=== PATIENT | male | born 1960 | race Caucasian/White ===

== ENCOUNTER 2017-05-23 16:55 | Observation (INO) | payer BC ==
[2017-05-23] MEDS ORDERED: SODIUM CHLORIDE 1,000 ML IV ONE ×2 (17:08→18:26)
[2017-05-23 17:40] LABS: MCH 29.2 pg (25.7-33.7)
[2017-05-23 17:42] LABS: BASOPHIL 0.5 % (0-2.0); EOSINOPHIL 0.9 % (0-4.5); MCHC 34.9 g/dl (32.0-35.9); MEAN CELL VOLUME 83.5 fl (80-96); MEAN PLT VOLUME 7.8 fl (7.5-11.1); PLATELET COUNT 260 K/MM3 (134-434); RDW 13.5 % (11.9-15.9)
[2017-05-23 17:49] LABS: INR 1.08 (0.82-1.09); PROTHROMBIN TIME (PATIENT) 12.2 SEC (9.98-11.88)
--- NOTE | 2017-05-23 17:51 | PDOC ---
History of Present Illness - General History Source: Patient Exam Limitations: No Limitations - History of Present Illness Initial Comments: 05/23/17 17:52 The patient is a 56 year old male, with a significant past medical history of HLD who presents to the emergency department with rectal bleeding today. Patient notes prostate biopsy that was performed at 2:30 PM by his urologist today. Patient reports returning home and immediately noticed bright red blood with bowels. Patient reports 4-5 episodes of hematochezia with lightheadedness and generalized weakness. Patient states this has happened before after his previous prostate biopsy. Patient presents to the ED for further evaluation. Patient has also been taking Ceftriaxone before the procedure. Upon evaluation, patients vital signs are within normal limits. He denies chest pain, headache. He denies fever, chills, abdominal pain, nausea , vomit, diarrhea or constipation. He denies dysuria, frequency, urgency or hematuria. Patient denies sick contacts or recent travel. Allergies: NKA Past surgical history: R Knee sx, prostate biopsy. Social history: None PCP: Dr. Tompkins Urologist: Ky Worley <Yoanna Donohue - Last Filed: 05/23/17 18:59> - General History Source: Patient Exam Limitations: No Limitations <Karli Shields - Last Filed: 05/23/17 19:04> - General Chief Complaint: Rectal Bleed Stated Complaint: RECTAL BLEEDING Time Seen by Provider: 05/23/17 17:14 Past History <Yoanna Doonhue - Last Filed: 05/23/17 18:59> - Past Medical History COPD: No Hypercholesterolemia: Yes - Suicide/Smoking/Psychosocial Hx Smoking History: Never smoked Have you smoked in the past 12 months: No Information on smoking cessation initiated: No Hx Alcohol Use: No Drug/Substance Use Hx: No Substance Use Type: None <Karli Shields - Last Filed: 05/23/17 19:04> - Past Medical History Allergies/Adverse Reactions: Allergies Allergy/AdvReac Type Severity Reaction Status Date / Time No Known Allergies Allergy Verified 05/23/17 16:58 Home Medications: Ambulatory Orders Atorvastatin Calcium [Lipitor] 10 mg PO DAILY 12/14/13 Review of Systems - Review of Systems Able to Perform ROS?: Yes Comments:: 05/23/17 17:52 GENERAL/CONSTITUTIONAL: No fever or chills. +generalized weakness HEAD, EYES, EARS, NOSE AND THROAT: No change in vision. No ear pain or discharge. No sore throat. GASTROINTESTINAL: No nausea, vomiting, diarrhea or constipation. +hematochezia GENITOURINARY: No dysuria, frequency, or change in urination. CARDIOVASCULAR: No chest pain or shortness of breath. RESPIRATORY: No cough, wheezing, or hemoptysis. MUSCULOSKELETAL: No joint or muscle swelling or pain. No neck or back pain. SKIN: No rash NEUROLOGIC: No headache, vertigo, loss of consciousness, or change in strength/ sensation. ENDOCRINE: No increased thirst. No abnormal weight change. HEMATOLOGIC/LYMPHATIC: No anemia, easy bleeding, or history of blood clots. ALLERGIC/IMMUNOLOGIC: No hives or skin allergy. <Yoanna Donohue - Last Filed: 05/23/17 18:59> *Physical Exam - Vital Signs Last Vital Signs Temp Pulse Resp BP Pulse Ox 98.0 F 88 18 130/83 100 05/23/17 16:59 05/23/17 16:59 05/23/17 16:59 05/23/17 16:59 05/23/17 16:59 - Physical Exam Comments: 05/23/17 17:52 GENERAL: Awake, alert, and fully oriented, in no acute distress. +pale appearing HEAD: No signs of trauma EYES: PERRLA, EOMI, sclera anicteric, conjunctiva clear ENT: Auricles normal inspection, nares patent, Moist mucosa NECK: Normal ROM, supple, no lymphadenopathy, JVD, or masses LUNGS: Breath sounds equal, clear to auscultation bilaterally. No wheezes, and no crackles HEART: Regular rate and rhythm, normal S1 and S2, no murmurs, rubs or gallops ABDOMEN: Soft, nontender, normoactive bowel sounds. No guarding, no rebound. No masses EXTREMITIES: Normal range of motion, no edema. No clubbing or cyanosis. No cords, erythema, or tenderness NEUROLOGICAL: Normal speech SKIN: Warm, Dry, normal turgor, no rashes or lesions noted. <Yoanna Donohue - Last Filed: 05/23/17 18:59> - Vital Signs Last Vital Signs Temp Pulse Resp BP Pulse Ox 98.0 F 88 18 130/83 100 05/23/17 16:59 05/23/17 16:59 05/23/17 16:59 05/23/17 16:59 05/23/17 16:59 <Karli Shields - Last Filed: 05/23/17 19:04> Heart Score/ECG Review #1 General ECG Interpretation: Sinus Rhythm, Normal Rate (87), Normal Intervals, No acute ischemic changes <Karli Shields - Last Filed: 05/23/17 19:04> ED Treatment Course - LABORATORY CBC & Chemistry Diagram: 05/23/17 17:18 05/23/17 17:18 <Yoanna Donohue - Last Filed: 05/23/17 18:59> - LABORATORY CBC & Chemistry Diagram: 05/23/17 17:18 05/23/17 17:18 - RADIOLOGY Radiology Studies Ordered: Category Date Time Status CHEST X-RAY PORTABLE* [RAD] Stat Radiology 05/23/17 17:02 Taken <Karli Shields - Last Filed: 05/23/17 19:04> Medical Decision Making - Medical Decision Making 05/23/17 17:[address] Ky Worley. 05/23/17 17:59 Ky Worley returned the page and the patients case was discussed. <Yoanna Donohue - Last Filed: 05/23/17 18:59> - Medical Decision Making 05/23/17 17:46 56 yo M h/o prostate biopsy today at 2 : 30 with bleeding with stool. no bleeding in between. no blood thinner, no aspirin. no pain or fevers. he felt lightheaded, didnt lose consiousness. no other comlaints. had similar episode 2 yrs ago. pt states had mild bleeding then. no cp no sob. was given ceftriaxone after the procedure. 05/23/17 17:50 on exam awake alert lungs clear heart rrr. abd soft nt nd. ext wwwp. plan labs type and scrren. iv hydration. will d/w dr gilmore likely admit for observation. 05/23/17 19:01 pt h/h stable, per dr. gilmore do not perform rectal exam as concern for disrupting a clot. d/w resident, will admit for serial h/h to dr. garzon. <Karli Shields - Last Filed: 05/23/17 19:04> *DC/Admit/Observation/Transfer - Attestations Scribe Attestion: 05/23/17 17:53 Documentation prepared by Yoanna Donohue, acting as medical affairs director for Karli Shields MD <Yoanna Donohue - Last Filed: 05/23/17 18:59> - Discharge Dispostion Admit: Yes <Karli Shields - Last Filed: 05/23/17 19:04> Diagnosis at time of Disposition: GI bleed - Referrals Referrals: Lalo Urena MD [Primary Care Provider] -
[2017-05-23 17:52] LABS: ACTIVATED PTT 25.8 SECONDS (26.9-34.4)
[2017-05-23 18:10] LABS: ANION GAP 7 (8-16); BILIRUBIN,TOTAL 0.5 mg/dL (0.2-1.0); CALCIUM 7.6 mg/dL (8.5-10.1); CO2 26 mmol/L (21-32); CREATININE 1.1 mg/dL (0.7-1.3); GLUCOSE,RANDOM 132 mg/dL (74-106); SGOT/AST 17 U/L (15-37); SGPT/ALT 33 U/L (12-78); TOT PROT 5.6 g/dl (6.4-8.2)
[2017-05-23 18:11] LABS: ALK PHOS 75 U/L (45-117)
--- NOTE | 2017-05-23 21:16 | HP ---
CHIEF COMPLAINT: "i had a bloody bowel movement" PCP: Dr. Tompkins Urologist: Ky Worley HISTORY OF PRESENT ILLNESS: This is a 56 yo M with PMH of HLD and prostate enlargement, who presents due to rectal bleeding. Patient had a prostate biopsy at 230 pm today and had a bright red bloody nonpainful BM immediately after. He proceeded to have 4-5 episodes of hematochezia associated with lightheadedness and generalized weakness, causing him to sit on the floor and rest before getting up. Patient states this has happened before after his previous prostate biopsy 2 years ago (negative for malignancy). At that time hematochezia resolved spontaneously w/o hospitalization or complication. His only medications are stating and Ceftriaxone given before the procedure. Dr Ky Worley recommends observing patient overnigt and avoiding rectal exam. He currently denies h/a, cp, sob, cought, dizziness, f/c, abd pain, rectal pain, n/v, diarrhea or constipation, dysuria, hematuria. His last bm was at 4 pm and was bloody. ER course was notable for: (1)labs (2)ekg (3)ivf Recent Travel: denies PAST MEDICAL HISTORY: as above PAST SURGICAL HISTORY: R Knee sx, prostate biopsy. Social History: lives at home Smoking: denies Alcohol:denies Drugs: denies Family History: hld Allergies No Known Allergies Allergy (Verified 05/23/17 16:58) HOME MEDICATIONS: Home Medications Medication Instructions Recorded Atorvastatin Calcium [Lipitor] 10 mg PO DAILY 12/14/13 REVIEW OF SYSTEMS CONSTITUTIONAL: Absent: fever, chills, malaise, loss of appetite, weight change HEENT: Absent: rhinorrhea, nasal congestion, throat pain, throat swelling CARDIOVASCULAR: Absent: chest pain, syncope, palpitations, irregular heart rate, lightheadedness , peripheral edema RESPIRATORY: Absent: cough, shortness of breath, dyspnea with exertion, orthopnea, wheezing, stridor, hemoptysis GASTROINTESTINAL: Absent: abdominal pain, abdominal distension, nausea, vomiting, constipation, melena GENITOURINARY: Absent: dysuria, hematuria, flank pain, genital pain MUSCULOSKELETAL: Absent: myalgia, arthralgia SKIN: Absent: rash, itching, pallor HEMATOLOGIC/IMMUNOLOGIC: Absent: easy bleeding, easy bruising ENDOCRINE: Absent: unexplained weight gain, unexplained weight loss, heat intolerance, cold intolerance NEUROLOGIC: Absent: headache, focal weakness or paresthesias PSYCHIATRIC: Absent: anxiety, depression PHYSICAL EXAMINATION GENERAL: Awake, alert, and fully oriented, in no acute distress. HEAD: Normal with no signs of trauma. EYES: Pupils equal, round and reactive to light, extraocular movements intact, sclera anicteric, conjunctiva clear. No lid lag. EARS, NOSE, THROAT: Moist mucous membranes. NECK: supple without JVD LUNGS: Breath sounds equal, clear to auscultation bilaterally. No wheezes, and no crackles. No accessory muscle use. HEART: Regular rate and rhythm, normal S1 and S2 ABDOMEN: Soft, nontender, not distended, normoactive bowel sounds, no guarding, no rebound, no masses. No hepatomegaly or splenomegaly. MUSCULOSKELETAL: No CVA tenderness. UPPER EXTREMITIES: 2+ pulses, warm, well-perfused. No peripheral edema. LOWER EXTREMITIES: 2+ pulses, warm, well-perfused. No calf tenderness. No peripheral edema. NEUROLOGICAL: Cranial nerves II-XII grossly intact. Normal speech. PSYCHIATRIC: Cooperative. Good eye contact. Appropriate mood and affect. SKIN: Warm, dry ASSESSMENT/PLAN: This is a 56 yo M with PMH of HLD and prostate enlargement, who presents due to rectal bleeding. Patient had a prostate biopsy at 230 pm today and had a bright red bloody nonpainful BM immediately after. Rectal bleed -s/p prostate biopsy -possibly iatrogenic, history of similar symptoms after prior biopsy -hemodynamically stable, h/h stable -urology on case; avoid rectal exam, observe -IVF NS@100; monitor h/h -expect spontaneous resolution -GI eval outpatient Prostate enlargement -elevated PSA -f/u prostate biopsy result HLD -resume statin FEN NS @100 lytes stable low na diet Dispo: obs med genoveva Visit type - Emergency Visit Emergency Visit: Yes ED Registration Date: 05/23/17 Care time: The patient presented to the Emergency Department on the above date and was hospitalized for further evaluation of their emergent condition. - New Patient This patient is new to me today: Yes Date on this admission: 05/24/17 - Critical Care Critical Care patient: No
[2017-05-23 21:40] VITALS: BMI 36.3
--- NOTE | 2017-05-24 00:04 | PN ---
Teaching Attending Note Name of Resident: Mendy Hsieh ATTENDING PHYSICIAN STATEMENT I saw and evaluated the patient. I reviewed the resident's note and discussed the case with the resident. I agree with the resident's findings and plan as documented. SUBJECTIVE: 56 y/o M s/p prostate biopsy presents with blood in stools and on evaluation positive orthostatic hypotension. PMH: hypercholesterol. ROS: all systems reviewed and negative other than mentioned. OBJECTIVE: Gen.: Well-nourished . Alert and oriented x3 in no acute distress. HEENT: Normocephalic, atraumatic, pupils equal and reactive to light and accommodation, EOMI, no exophthalmos, normal nasal and oral pharyngeal mucosa. Neck:Trachea midline, no thyroid nodules appreciated or thyromegaly. Cardiovascular: Regular rate, and rhythm, S1, S2, no murmur, no gallop, no rub. Respiration: Equal bilateral breath sounds ,no wheezing, no rhonchi, and no rales. Abdomen: Soft, nontender, bowel sounds present, no hepatosplenomegaly. Musculoskeletal: No peripheral edema, equal bilateral pulses, normal ROM. Neuro: Cranial nerves II through XII intact, no focal deficits. Skin: warm to touch, no rashs, no lesions CBCD WBC 12.0 K/mm3 (4.0-10.0) H 05/23/17 17:18 RBC 4.63 M/mm3 (4.00-5.60) 05/23/17 17:18 Hgb 13.5 GM/dL (11.7-16.9) D 05/23/17 17:18 Hct 38.7 % (35.4-49) 05/23/17 17:18 MCV 83.5 fl (80-96) 05/23/17 17:18 MCHC 34.9 g/dl (32.0-35.9) 05/23/17 17:18 RDW 13.5 % (11.9-15.9) 05/23/17 17:18 Plt Count 260 K/MM3 (134-434) D 05/23/17 17:18 MPV 7.8 fl (7.5-11.1) 05/23/17 17:18 CMP Sodium 138 mmol/L (136-145) 05/23/17 17:18 Potassium 3.8 mmol/L (3.5-5.1) 05/23/17 17:18 Chloride 105 mmol/L (98-107) 05/23/17 17:18 Carbon Dioxide 26 mmol/L (21-32) 05/23/17 17:18 Anion Gap 7 (8-16) L 05/23/17 17:18 BUN 15 mg/dL (7-18) D 05/23/17 17:18 Creatinine 1.1 mg/dL (0.7-1.3) D 05/23/17 17:18 Creat Clearance w eGFR > 60 (>60) 05/23/17 17:18 Calcium 7.6 mg/dL (8.5-10.1) L 05/23/17 17:18 Total Bilirubin 0.5 mg/dL (0.2-1.0) 05/23/17 17:18 AST 17 U/L (15-37) 05/23/17 17:18 ALT 33 U/L (12-78) 05/23/17 17:18 Alkaline Phosphatase 75 U/L (45-117) 05/23/17 17:18 Total Protein 5.6 g/dl (6.4-8.2) L 05/23/17 17:18 Albumin 3.0 g/dl (3.4-5.0) L 05/23/17 17:18 ASSESSMENT AND PLAN: Complication s/p prostate biopsy IVF monitor H&H, type and screen and transfuse if hgb <7. Diet in AM
[2017-05-24] MEDS: SODIUM CHLORIDE 1,000 ML IV SCH ×2 (00:23→10:23)
[2017-05-24 08:31] LABS: BASOPHIL 0.3 % (0-2.0); EOSINOPHIL 1.1 % (0-4.5); MCH 29.2 pg (25.7-33.7); MCHC 34.9 g/dl (32.0-35.9); MEAN CELL VOLUME 83.6 fl (80-96); MEAN PLT VOLUME 7.6 fl (7.5-11.1); PLATELET COUNT 223 K/MM3 (134-434); RDW 13.4 % (11.9-15.9); WHITE BLOOD COUNT 8.6 K/mm3 (4.0-10.0)
[2017-05-24 09:19] LABS: ANION GAP 6 (8-16); CALCIUM 7.5 mg/dL (8.5-10.1); CO2 25 mmol/L (21-32); CREATININE 0.8 mg/dL (0.7-1.3); GLUCOSE,RANDOM 104 mg/dL (74-106); PHOSPHOROUS 2.6 mg/dL (2.5-4.9)
[2017-05-24 11:32] LABS: MCH 29.2 pg (25.7-33.7); MCHC 34.7 g/dl (32.0-35.9); MEAN CELL VOLUME 84.3 fl (80-96); MEAN PLT VOLUME 7.4 fl (7.5-11.1); PLATELET COUNT 205 K/MM3 (134-434); RDW 13.5 % (11.9-15.9); WHITE BLOOD COUNT 8.1 K/mm3 (4.0-10.0)
[2017-05-24 13:01] LABS: URINE APPEARANCE CLEAR; URINE BILIRUBIN NEGATIVE (NEGATIVE); URINE BLOOD NEGATIVE (NEGATIVE); URINE COLOR STRAW; URINE GLUCOSE (UA) NEGATIVE (NEGATIVE); URINE KETONE NEGATIVE (NEGATIVE); URINE NITRITE NEGATIVE (NEGATIVE); URINE PROTEIN NEGATIVE (NEGATIVE); URINE UROBILINOGEN NEGATIVE mg/dL (0.2-1.0)
--- NOTE | 2017-05-24 14:56 | DS ---
Physical Exam: SUBJECTIVE: Patient seen and examined OBJECTIVE: Vital Signs Period Temp Pulse Resp BP Sys/Garcia Pulse Ox Last 24 Hr 97.1 F-98.2 F 78-101 18-20 116-142/61-90 99 PHYSICAL EXAM GENERAL: The patient is awake, alert, and fully oriented, in no acute distress. HEAD: Normal with no signs of trauma. EYES: PERRL, extraocular movements intact, sclera anicteric, conjunctiva clear. ENT: Ears normal, nares patent, oropharynx clear without exudates, moist mucous membranes. NECK: Trachea midline, full range of motion, supple. LUNGS: Breath sounds equal, clear to auscultation bilaterally, no wheezes, no crackles, no accessory muscle use. HEART: Regular rate and rhythm, S1, S2 without murmur, rub or gallop. ABDOMEN: Soft, nontender, nondistended, normoactive bowel sounds, no guarding, no rebound, no hepatosplenomegaly, no masses. EXTREMITIES: 2+ pulses, warm, well-perfused, no edema. NEUROLOGICAL: Cranial nerves II through XII grossly intact. Normal speech, gait not observed. PSYCH: Normal mood, normal affect. SKIN: Warm, dry, normal turgor, no rashes or lesions noted. LABS Laboratory Results - last 24 hr 05/24/17 05/24/17 05/24/17 07:15 07:15 11:00 WBC 8.6 8.1 RBC 3.71 L 3.69 L Hgb 10.8 L D 10.8 L Hct 31.1 L D 31.1 L MCV 83.6 84.3 MCH 29.2 29.2 MCHC 34.9 34.7 RDW 13.4 13.5 Plt Count 223 205 MPV 7.6 7.4 L Neutrophils % 64.0 Lymphocytes % 26.7 D Monocytes % 7.9 Eosinophils % 1.1 Basophils % 0.3 Sodium 140 Potassium 4.6 D Chloride 109 H Carbon Dioxide 25 Anion Gap 6 L BUN 12 Creatinine 0.8 D Random Glucose 104 D Calcium 7.5 L Phosphorus 2.6 Magnesium 2.0 Urine Color Urine Appearance Urine pH Ur Specific [place] Urine Protein Urine Glucose (UA) Urine Ketones Urine Blood Urine Nitrite Urine Bilirubin Urine Urobilinogen 05/24/17 12:00 WBC RBC Hgb Hct MCV MCH MCHC RDW Plt Count MPV Neutrophils % Lymphocytes % Monocytes % Eosinophils % Basophils % Sodium Potassium Chloride Carbon Dioxide Anion Gap BUN Creatinine Random Glucose Calcium Phosphorus Magnesium Urine Color Straw Urine Appearance Clear Urine pH 8.0 Ur Specific [place] 1.006 Urine Protein Negative Urine Glucose (UA) Negative Urine Ketones Negative Urine Blood Negative Urine Nitrite Negative Urine Bilirubin Negative Urine Urobilinogen Negative HOSPITAL COURSE: Date of Admission:05/23/17 Date of Discharge: 05/24/17 Pre hospital course This is a 56 yo M with PMH of HLD and prostate enlargement, who presents due to rectal bleeding. Patient had a prostate biopsy at 230 pm today and had a bright red bloody nonpainful BM immediately after. He proceeded to have 4-5 episodes of hematochezia associated with lightheadedness and generalized weakness, causing him to sit on the floor and rest before getting up. Patient states this has happened before after his previous prostate biopsy 2 years ago (negative for malignancy). At that time hematochezia resolved spontaneously w/o hospitalization or complication. Dr Ky Worley recommends observing patient overnight and avoiding rectal exam. He currently denies h/a, cp, sob, cought, dizziness, f/c, abd pain, rectal pain, n/v, diarrhea or constipation, dysuria, hematuria. His last bm was at 4 pm and was bloody. Subsequent hospital course Patient's last episode of rectal bleeding was in the ED. He was kept under observation for ~22 hours with no recurrence. Serial blood draws showed a stable Hgb. Patient had no difficulty voiding, no hematuria. He was discharged to follow up with Dr. Ky Worley. Minutes to complete discharge: 35 Discharge Summary Reason For Visit: GASTROINTESTINAL HEMORRHAGE Current Active Problems GI bleed (Acute) Condition: Improved - Instructions Diet, Activity, Other Instructions: Continue to take the levofloxacin prescribed to you by Dr. Howard. Finish all the medication. Return to the emergency room if you see any blood, have difficulty urinating, or develop signs of symptom of a fever. Be sure to follow up with Dr. Howard in two weeks. Referrals: Lalo Urena MD [Primary Care Provider] - Shaun Howrad MD [Staff Physician] - 2 Weeks Disposition: HOME - Home Medications Comprehensive Discharge Medication List: Ambulatory Orders Atorvastatin Calcium [Lipitor] 10 mg PO DAILY 05/25/14 This patient is new to me today: Yes Date on this admission: 05/25/17 Emergency Visit: No Critical Care patient: No - Discharge Referral Referred to [facility] No
[2017-05-24 15:10] VITALS: BP 160/99; PULSE 78; TEMP 97.7
--- NOTE | 2017-05-24 17:03 | EKG ---
Test Reason : Blood Pressure : / mmHG Vent. Rate : 087 BPM Atrial Rate : 087 BPM P-R Int : 172 ms QRS Dur : 096 ms QT Int : 396 ms P-R-T Axes : 053 048 032 degrees QTc Int : 476 ms NORMAL SINUS RHYTHM NORMAL ECG WHEN COMPARED WITH ECG OF 18-JAN-2016 11:46, QT HAS LENGTHENED Confirmed by MIGUEL PARR MD ([id number]) on 05/24/2017 5:03:24 PM Referred By: Confirmed By:MIGUEL PARR MD
[2017-05-24 18:18] LABS: URINE LEUK ESTERASE Negative (NEGATIVE)
[2017-05-24] MEDS ORDERED: ATORVASTATIN CA 10 MG TABLET (FP) PO SCH (22:00)
== END 2017-05-24 15:36 | disposition home or self-care (01) ==
LOC: JER 16:55 → JERBED 19:00 → J6S 20:59
PROVIDERS: ADMIT Internal Medicine; ATTEND Nurse Practitioner Acute Care
PROC: 3E0337Z Introduction of Electrolytic and Water Balance Substance into Peripheral Vein, Percutaneous Approach (ICD-10-PCS; principal; 2017-05-23)
DX: K92.2 Gastrointestinal hemorrhage, unspecified (principal); E78.5 Hyperlipidemia, unspecified; N40.0 Benign prostatic hyperplasia without lower urinary tract symptoms
CPT/HCPCS: 36415; 71010-TC; 80048; 80053; 81003; 83735; 84100; 85025; 85027; 85610; 85730; 86850; 86900; 86901; 87040; 87086; 93005; 93010; 99285-25; G0378

== ENCOUNTER 2019-02-24 10:27 | Emergency (ER) | payer OTHER, BC ==
[2019-02-24 10:41] VITALS: BP 157/90; PULSE 93; TEMP 98.6; BMI 30.4
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
== END 2019-02-24 10:50 | disposition home or self-care (01) ==
LOC: JERFT 10:27
PROC: 0HQ1XZZ Repair Face Skin, External Approach (ICD-10-PCS; principal; 2019-02-24)
DX: S01.21XA Laceration without foreign body of nose, initial encounter (principal); S00.81XA Abrasion of other part of head, initial encounter; Y04.2XXA Assault by strike against or bumped into by another person, initial encounter; Y93.89 Activity, other specified; Y92.238 Other place in hospital as the place of occurrence of the external cause; Y99.0 Civilian activity done for income or pay
CPT/HCPCS: 99281-25

== ENCOUNTER 2020-04-17 21:25 | Emergency (ER) | payer BC, OTHER ==
--- OUTSIDE RECORDS SUMMARY | 2020-04-17 21:34 | XMS ---
:1960 Author Organization [facility] Support Name Relationship Address Phone [facility] Unavailable [address] [place] [address] [facility] [address] [place] [address] FRANCES[employer]ING BROTHER [address] [place] [address] Re-disclosure Warning The records that you are about to access may contain information from federally- assisted alcohol or drug abuse programs. If such information is present, then the following federally mandated warning applies: This information has been disclosed to you from records protected by federal confidentiality rules (42 CFR part 2). The federal rules prohibit you from making any further disclosure of this information unless further disclosure is expressly permitted by the written consent of the person to whom it pertains or as otherwise permitted by 42 CFR part 2. A general authorization for the release of medical or other information is NOT sufficient for this purpose. The Federal rules restrict any use of the information to criminally investigate or prosecute any alcohol or drug abuse patient.The records that you are about to access may contain highly sensitive health information, the redisclosure of which is protected by Article 27-F of the [facility] Public Health law. If you continue you may haveaccess to information: Regarding HIV / AIDS; Provided by facilities licensed or operated by the [facility] Office of Mental Health; or Provided by the [facility] Office for People With Developmental Disabilities. If such information is present, then the following [facility] mandated warning applies: This information has been disclosed to you from confidential records which are protected by state law. State law prohibits you from making any further disclosure of this information without the specific written consent of the person to whom it pertains, or as otherwise permitted by law. Any unauthorized further disclosure in violation of state law may result in a fine or skilled nursing sentence or both. A general authorization for the release of medical or other information is NOT sufficient authorization for further disclosure. Insurance Providers Payer name Policy type Policy ID Covered Covered alliance party's Policy P yogesh / Coverage alliance party ID relationship to [employer] ormation type [employer] EPO [id number] SP [id number] HOSP. 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 Procedure
[2020-04-17 21:35] VITALS: BP 172/108; PULSE 95; TEMP 99.6; BMI 32.1
[2020-04-17] MEDS ORDERED: LIDOCAINE HCL 1%, 10 MG/ML (50 mL VIAL) SQ ONE (21:44)
[2020-04-17] MEDS ORDERED: LIDOCAINE HCL 1%, 10 MG/ML (20ML VIAL) ONE (21:44)
--- NOTE | 2020-04-17 21:44 | PDOC ---
History of Present Illness - General Chief Complaint: Pain Stated Complaint: UPPER LIP PAIN/SWELLING Time Seen by Provider: 04/17/20 21:29 History Source: Patient Exam Limitations: No Limitations - History of Present Illness Initial Comments: 04/17/20 21:44 HPI 59 YOM with h/o arthritis and HLD presenting with upper lip and gum pain and swelling since yesterday. He denies any particular triggers, last meal before this occurred was chicken cutlet sandwich at noon. He states his upper lips and gums started to hurt yesterday afternoon. denies tobacco or drug use. He admits to proper dental hygiene, brushes his teeth daily. denies any trauma. no antihypertensive medications or OTC meds use. He took Advil at 8pm with some relief today Denies fever, chills, chest pain, SOB, sore throat, ear pain, eye pain, visual or hearing disturbances, dizziness, weakness, N, V, D, abdominal pain, focal weakness/paresthesias, leg swelling/pain, rash. No new changes in medications. No suspicious food intake Allergies: None Past Medical History/PSH: as above Social history: no tobacco, ETOH or drug use. no chewing tobacco. Review of systems Constitutional: no fevers or chills. No weakness HEENT: no headache or dizziness. No congestion. No visual/hearing disturbances. no eye pain or ear pain, no discharge. +gum pain, +lip swelling CVS: no cp or syncope. Resp: no sob. No cough. Gastrointestinal: no abdominal pain, nausea, vomiting, diarrhea. MUSCULOSKELETAL: No joint pain and swelling. No neck or back pain. SKIN: no redness or skin changes, no discharge, no rash. No wounds. Hematologic: no easy bruising/bleeding. NEUROLOGIC: No headache, dizziness, LOC or altered mental status. No weakness, numbness or tingling. Psych: no anxiety or depression Allergic/Immunologic: no allergies All other systems reviewed and negative, or as documented in HPI. Physical exam General: Well appearing, awake and alert, NAD. HEENT: NCAT, PERRL, EOMI, clear conjunctiva, anicteric, moist mucus membranes, clear oropharynx. +upper lip nonpitting edema, +anterior maxillary gum inflammation, +fluctuant lesion at the anterior maxillary gum between the front teeth, with tenderness to palpation significantly. airway patent Neck: neck supple, FROM Resp: CTAB, normal and even respirations, no respiratory distress CVS: RRR, no murmurs, 2+ peripheral pulses throughout, no peripheral edema Abdomen: soft, NTND, no rebound or guarding. Back: nontender, normal inspection and ROM MSK: no edema, EVANS x4, ROM intact. No clubbing or cyanosis. normal bulk and tone. Neuro: alert, oriented appropriately; no focal neurologic deficits, speech clear, CN II to XII grossly intact. Psych: Calm and cooperative Skin: warm and well perfused, cap refill <2 sec, normal color, no rash or skin discoloration. 04/17/20 21:45 04/17/20 22:06 04/17/20 22:14 Past History - Medical History Allergies/Adverse Reactions: Allergies Allergy/AdvReac Type Severity Reaction Status Date / Time No Known Allergies Allergy Verified 11/30/19 12:06 Home Medications: Ambulatory Orders Atorvastatin Calcium [Lipitor] 10 mg PO DAILY 12/14/13 Acidoph/L.bulg/Bif.b/S.thermop [Bacid Caplet] 1 each PO DAILY #10 tablet 04/17/20 Clindamycin [Cleocin -] 300 mg PO TID #21 capsule 04/17/20 COPD: No Hypercholesterolemia: Yes - Psycho-Social/Smoking History Smoking History: Never smoked Have you smoked in the past 12 months: No *Physical Exam - Vital Signs Last Vital Signs Temp Pulse Resp BP Pulse Ox 99.6 F 95 H 18 172/108 H 96 04/17/20 21:30 04/17/20 21:30 04/17/20 21:30 04/17/20 21:30 04/17/20 21:30 Procedures - Incision and Drainage I&D Site: Bilateral: Other (maxillary anterior gum) Betadine cleansed: Yes Anesthesia: 1% Lidocaine Volume(ml): 5 Blade Size: 11 Attempts: 1 Plain Packing: No Complications: none Dressing: No Medical Decision Making - Medical Decision Making 04/17/20 21:48 Vital Signs Temp Pulse Resp BP Pulse Ox 99.6 F 95 H 18 172/108 H 96 04/17/20 21:30 04/17/20 21:30 04/17/20 21:30 04/17/20 21:30 04/17/20 21:30 vitals reviewed no fever hypertensive, normal HR likely from pain pt with intact airway, no respiratory distress he has acute gingivitis local anesthesia with lidocaine 1%, I&D done for the gum/dental abscess, tolerated, small fluid purulence and blood drained. will treat with clindamycin for infection, good oropharyngeal ania antibacterial coverage there is no evidence of systemic infection no evidence to suggest acute necrotizing ulcerative infection, no janneth's angina symptoms or signs. dental followup provided dental hygiene encouraged soft foot diet for now. otc analgesia as needed return precautions such as infection, difficulty swallowing, airway involvement, respiratory distress 04/17/20 22:07 04/17/20 22:12 Discharge - Discharge Information Problems reviewed: Yes Clinical Impression/Diagnosis: Gingivitis, Abscess of upper gum Condition: Stable Disposition: HOME - Admission No - Additional Discharge Information Prescriptions: Acidoph/L.bulg/Bif.b/S.thermop [Bacid Caplet] 1 each PO DAILY #10 tablet Clindamycin [Cleocin -] 300 mg PO TID #21 capsule - Follow up/Referral Referrals: Lalo Urena MD [Primary Care Provider] - Arabella Worrell DDS [Non Staff, Medical] - Sarath King DDS [Non Staff, Medical] - Laci Matthews DDS [Non Staff, Medical] - Montana Aguilar MD [Other Staff,non-medical] - - Patient Discharge Instructions Patient Printed Discharge Instructions: Tooth Abscess, DI for Gingivitis, DI for Dental Pain Additional Instructions: 1) Please follow-up with your primary care doctor in the next 1-2 days. Please call tomorrow for for any urgent issues. Dental followup is encouraged, referrals for doctors in the area given for followup 2) You were given a copy of the tests performed today. Please bring the results with you and review them with your primary care doctor. 3) If you have any worsening of symptoms or any other concerns please return to the ED immediately. Return if worsening symptoms including fevers, headache, vomiting, difficulty swallowing, sore throat, voice changes, visual or hearing disturbances, abdominal pain, chest pain, shortness of breath, syncope, dehydration, inability to take things by mouth/vomiting, altered mental status, or worsening concerning symptoms. 4) Please continue taking your home medications as directed. your medications on discharge include Clindamycin three times a day x 1 week, take with bacid (probiotic) daily. side effects may include upset stomach, abdominal pain, vomiting, or diarrhea. do not drink alcohol with your medications. you can take motrin or tylenol as needed for pain control. Stay well hydrated and rest adequately. Make an appointment. If you cannot follow-up with your primary care doctor please return to the ED - Post Discharge Activity
[2020-04-17] MEDS ORDERED: ACETAMINOPHEN 325 MG TABLET (FP) PO ONE (22:14)
[2020-04-17] MEDS ORDERED: ACETAMINOPHEN 500 MG TABLET (FP) ONE (22:15)
== END 2020-04-17 22:19 | disposition home or self-care (01) ==
LOC: FER 21:25
PROC: 0C903ZZ Drainage of Upper Lip, Percutaneous Approach (ICD-10-PCS; principal; 2020-04-17)
DX: K12.2 Cellulitis and abscess of mouth (principal)
CPT/HCPCS: 99283-25

== ENCOUNTER 2021-02-15 15:23 | Emergency (ER) | payer BC ==
[2021-02-15] MEDS ORDERED: MECLIZINE HCL 25 MG TABLET (FP) PO ONE (15:33)
[2021-02-15] MEDS ORDERED: SODIUM CHLORIDE 0.9% 1000 ML INFUS.BAG IV ONE ×2 (15:33→18:01)
[2021-02-15 15:35] VITALS: BMI 32.6
[2021-02-15] MEDS ORDERED: MECLIZINE HCL 25 MG TABLET (FP) ONE (15:53)
[2021-02-15 16:20] LABS: BASO % 0.4 % (0-2.0); EOS % 1.5 % (0-4.5); HEMATOCRIT 43.1 % (35.4-49); HEMOGLOBIN 14.9 GM/dL (11.7-16.9); MCH 29.4 pg (25.7-33.7); MCHC 34.6 g/dl (32.0-35.9); MEAN PLT VOLUME 7.7 fl (7.5-11.1); MONO % 9.4 % (3.8-10.2); NEUT % 70.7 % (42.8-82.8); PLATELET COUNT 221 10^3/uL (134-434); RBC 5.08 M/mm3 (4.00-5.60); RDW 13.3 % (11.9-15.9); WHITE BLOOD COUNT 8.8 K/mm3 (4.0-10.0)
[2021-02-15 16:39] LABS: CHLORIDE 110 mmol/L (98-107); SODIUM 142 mmol/L (136-145)
[2021-02-15 16:41] LABS: ALBUMIN 3.4 g/dl (3.4-5.0); ANION GAP 8 MMOL/L (8-16); CALCIUM 8.9 mg/dL (8.5-10.1); CO2 24 mmol/L (21-32); GLUCOSE,RANDOM 99 mg/dL (74-106)
[2021-02-15 16:42] LABS: BLOOD UREA NITROGEN 17.6 mg/dL (7-18)
[2021-02-15 16:44] LABS: SGOT/AST 14 U/L (15-37)
[2021-02-15 16:45] LABS: SGPT/ALT 22 U/L (13-61)
[2021-02-15 16:46] LABS: BILIRUBIN,TOTAL 0.3 mg/dL (0.2-1); CREATININE 0.9 mg/dL (0.55-1.3); TOT PROT 6.5 g/dl (6.4-8.2)
[2021-02-15 16:47] LABS: ALK PHOS 75 U/L (45-117)
[2021-02-15] MEDS ORDERED: ACETAMINOPHEN INJECTION 100 ML IVPB ONE (17:58)
[2021-02-15] MEDS ORDERED: ACETAMINOPHEN 1000 MG/100 ML VIAL (NON FORMULARY) IVPB ONE (17:59)
[2021-02-15 20:11] LABS: INR 0.99 (0.83-1.09)
[2021-02-15 20:13] LABS: ACTIVATED PTT 38.4 SECONDS (25.2-36.5)
[2021-02-15] MEDS ORDERED: ROSUVASTATIN CA 10 MG TABLET (FP) PO SCH (22:00)
[2021-02-16 07:30] LABS: CHOLESTEROL 142 mg/dL (50-200)
[2021-02-16 07:31] LABS: LDL CHOLESTEROL (ONLY SJRH) 84 mg/dL (5-100); TRIGLYCERIDES 139 mg/dL (0-150)
[2021-02-16 07:33] LABS: HDL CHOLESTEROL 27 mg/dL (40-60)
[2021-02-16] MEDS ORDERED: MELATONIN 5 MG TABLETS PO ONE (09:25)
[2021-02-16] MEDS ORDERED: LORazepam 2 MG TABLET PO PRN (09:27)
[2021-02-16] MEDS ORDERED: LORazepam 1 MG TABLET PO PRN (09:29)
[2021-02-16] MEDS ORDERED: metoPROLOL SUCCINATE 25 MG TAB.SR.24H (FP) PO SCH (10:00)
[2021-02-16] MEDS ORDERED: ASPIRIN 81 MG CHEWABLE TABLETS PO SCH (10:00)
[2021-02-16] MEDS ORDERED: CLOPIDOGREL BISULFATE 75 MG TABLET (FP) PO SCH (10:00)
[2021-02-16 15:59] VITALS: BP 142/72; PULSE 56; TEMP 98.1
[2021-02-16] MEDS ORDERED: ROSUVASTATIN CA 20 MG TABLET (FP) PO SCH (22:00)
== END 2021-02-16 16:30 | disposition home or self-care (01) ==
LOC: JER 15:23 → JERBED 19:06 → UNDOADMOB 19:06 → INTOOBSV 19:06 → J4S 21:59 → JERBED 21:59 → J4S 02-16 10:23
PROVIDERS: ADMIT Internal Medicine
PROC: 3E033GC Introduction of Other Therapeutic Substance into Peripheral Vein, Percutaneous Approach (ICD-10-PCS; principal; 2021-02-16)
DX: I65.09 Occlusion and stenosis of unspecified vertebral artery (principal); R42 Dizziness and giddiness; I10 Essential (primary) hypertension; I25.10 Atherosclerotic heart disease of native coronary artery without angina pectoris; I49.3 Ventricular premature depolarization; G47.33 Obstructive sleep apnea (adult) (pediatric); Z86.16 Personal history of COVID-19; Z79.82 Long term (current) use of aspirin; Z79.02 Long term (current) use of antithrombotics/antiplatelets; Z95.5 Presence of coronary angioplasty implant and graft
CPT/HCPCS: 36415; 70450-TC; 70498-TC; 70544-TC; 70547-TC; 70551-TC; 80053; 80061; 82550; 83721; 84484; 85025; 85610; 85730; 86850; 86900; 86901; 93005; 93010; 99285-25; C9803; G0378; J0131; Q9967; U0003; U0005

== ENCOUNTER 2021-03-19 21:14 | Emergency (ER) | payer BC ==
[2021-03-19 21:27] VITALS: PULSE 72; TEMP 98.3; BMI 32.6
[2021-03-19 21:40] VITALS: BP 152/88
== END 2021-03-19 21:45 | disposition home or self-care (01) ==
LOC: FER 21:14
DX: R05 Cough (principal); R09.81 Nasal congestion; Z11.52 Encounter for screening for COVID-19
CPT/HCPCS: 99283-25; C9803; U0003; U0005

== ENCOUNTER 2021-05-25 18:01 | Emergency (ER) | payer OTHER, BC ==
[2021-05-25 18:08] VITALS: BP 126/79; PULSE 70; TEMP 98; BMI 31.9
== END 2021-05-25 18:42 | disposition home or self-care (01) ==
LOC: JERFT 18:01
DX: S80.812A Abrasion, left lower leg, initial encounter (principal)
CPT/HCPCS: 99283-25

== ENCOUNTER 2021-09-08 14:44 | Emergency (ER) | payer BC ==
[2021-09-08 15:11] VITALS: BMI 31.9
[2021-09-08 15:14] VITALS: TEMP 98.1
[2021-09-08 15:54] LABS: BASO % 0.8 % (0-2.0); EOS % 4.7 % (0-4.5); HEMATOCRIT 45.4 % (35.4-49); HEMOGLOBIN 15.5 GM/dL (11.7-16.9); LYMPH % 18.2 % (8-40); MCH 29.1 pg (25.7-33.7); MCHC 34.1 g/dl (32.0-35.9); MEAN CELL VOLUME 85.4 fl (80-96); MEAN PLT VOLUME 7.3 fl (7.5-11.1); MONO % 10.5 % (3.8-10.2); NEUT % 65.8 % (42.8-82.8); PLATELET COUNT 246 10^3/uL (134-434); RBC 5.31 M/mm3 (4.00-5.60); RDW 13.6 % (11.9-15.9); WHITE BLOOD COUNT 8.6 K/mm3 (4.0-10.0)
[2021-09-08 16:02] LABS: INR 1.07 (0.83-1.09); PROTHROMBIN TIME (PATIENT) 12.3 SEC (9.7-13.0)
[2021-09-08 16:05] LABS: ACTIVATED PTT 37.6 SECONDS (25.2-36.5)
[2021-09-08 16:15] LABS: ALBUMIN 3.4 g/dl (3.4-5.0); BLOOD UREA NITROGEN 16.1 mg/dL (7-18); CALCIUM 8.7 mg/dL (8.5-10.1)
[2021-09-08 16:16] LABS: MAGNESIUM 2.4 mg/dL (1.8-2.4)
[2021-09-08 16:20] LABS: BILIRUBIN,TOTAL 0.4 mg/dL (0.2-1); TOT PROT 6.6 g/dl (6.4-8.2)
[2021-09-08 19:08] VITALS: BP 132/78; PULSE 63
== END 2021-09-08 19:09 | disposition home or self-care (01) ==
LOC: JER 14:44
DX: R53.83 Other fatigue (principal); R07.9 Chest pain, unspecified
CPT/HCPCS: 36415; 70450-TC; 71046-TC-FY; 80053; 83735; 84484; 85025; 85610; 85730; 93005; 93010; 99285-25; C9803; U0003; U0005

== ENCOUNTER 2021-11-28 13:54 | Emergency (ER) | payer BC ==
[2021-11-28 14:04] VITALS: BP 120/67; PULSE 94; TEMP 98.1; BMI 29.6
[2021-12-01 14:11] LABS: BABESIA MICROTI ANTIBODY IGG <1:10 (Neg:<1:10); BABESIA MICROTI ANTIBODY IGM <1:10 (Neg:<1:10)
[2021-12-01 17:10] LABS: E.chaff HME IgG Negative (Neg:<1:64)
== END 2021-11-28 16:32 | disposition home or self-care (01) ==
LOC: JERFT 13:54
DX: M25.531 Pain in right wrist (principal)
CPT/HCPCS: 36415; 73110-TC-RT-FY; 73130-TC-RT-FY; 86618; 86666; 86753; 93971; 99285-25

== ENCOUNTER 2022-09-07 13:29 | Observation (INO) | payer BC ==
[2022-09-07] MEDS ORDERED: ASPIRIN 81 MG CHEWABLE TABLETS PO ONE (14:16)
[2022-09-07] MEDS ORDERED: ASPIRIN 81 MG CHEWABLE TABLETS ONE (14:31)
[2022-09-07 15:57] LABS: BASO % 0.9 % (0-2.0); EOS % 2.4 % (0-4.5); HEMATOCRIT 44.2 % (35.4-49); HEMOGLOBIN 15.6 GM/dL (11.7-16.9); MCH 29.7 pg (25.7-33.7); MCHC 35.3 g/dl (32.0-35.9); MEAN CELL VOLUME 84.1 fl (80-96); MEAN PLT VOLUME 7.2 fl (7.5-11.1); MONO % 6.9 % (3.8-10.2); NEUT % 73.8 % (42.8-82.8); PLATELET COUNT 287 10^3/uL (134-434); RBC 5.26 M/mm3 (4.00-5.60); RDW 13.4 % (11.9-15.9); WHITE BLOOD COUNT 9.8 K/mm3 (4.0-10.0)
[2022-09-07] MEDS ORDERED: NITROGLYCERIN SUBLINGUAL 1/150 0.4 MG TAB SL ONE (16:02)
[2022-09-07 16:20] LABS: ACTIVATED PTT 38.3 SECONDS (25.2-36.5); INR 1.05 (0.83-1.09); PROTHROMBIN TIME (PATIENT) 12.2 SEC (9.7-13.0)
[2022-09-07 16:28] LABS: CALCIUM 8.7 mg/dL (8.5-10.1)
[2022-09-07 16:30] LABS: ALBUMIN 3.4 g/dl (3.4-5.0); BLOOD UREA NITROGEN 14.7 mg/dL (7-18); MAGNESIUM 2.2 mg/dL (1.8-2.4)
[2022-09-07 16:34] LABS: BILIRUBIN,TOTAL 0.4 mg/dL (0.2-1); TOT PROT 6.7 g/dl (6.4-8.2)
[2022-09-07 18:18] VITALS: BMI 35.1
[2022-09-07] MEDS ORDERED: ROSUVASTATIN CA 20 MG TABLET PO SCH (22:00)
[2022-09-07] MEDS: TICAGRELOR 90 MG TABLET PO SCH (22:21)
[2022-09-08 06:51] VITALS: RESP 18
[2022-09-08 08:11] LABS: HEMATOCRIT 45.1 % (35.4-49); HEMOGLOBIN 15.7 GM/dL (11.7-16.9); MCH 29.1 pg (25.7-33.7); MCHC 34.8 g/dl (32.0-35.9); MEAN CELL VOLUME 83.5 fl (80-96); MEAN PLT VOLUME 7.4 fl (7.5-11.1); PLATELET COUNT 264 10^3/uL (134-434); RDW 13.6 % (11.9-15.9)
[2022-09-08 08:40] LABS: BLOOD UREA NITROGEN 16.2 mg/dL (7-18); CALCIUM 8.5 mg/dL (8.5-10.1)
[2022-09-08 08:41] LABS: MAGNESIUM 2.2 mg/dL (1.8-2.4)
[2022-09-08 08:43] LABS: PHOSPHOROUS 2.7 mg/dL (2.5-4.9)
[2022-09-08 08:44] LABS: CREATININE 0.9 mg/dL (0.55-1.3)
[2022-09-08] MEDS ORDERED: ASPIRIN 81 MG CHEWABLE TABLETS PO SCH (10:00)
[2022-09-08] MEDS: TICAGRELOR 90 MG TABLET PO SCH (10:16)
[2022-09-08 14:05] VITALS: BP 138/85; PULSE 59; TEMP 97.6
== END 2022-09-08 15:50 | disposition home or self-care (01) ==
LOC: JER 13:29 → JERBED 14:51 → J4S 17:55
PROVIDERS: ADMIT Internal Medicine; ATTEND Internal Medicine
DX: R07.89 Other chest pain (principal); I25.10 Atherosclerotic heart disease of native coronary artery without angina pectoris; I11.9 Hypertensive heart disease without heart failure; K21.9 Gastro-esophageal reflux disease without esophagitis; Z95.5 Presence of coronary angioplasty implant and graft; E66.8 Other obesity; Z68.35 Body mass index [BMI] 35.0-35.9, adult; G47.33 Obstructive sleep apnea (adult) (pediatric); R01.1 Cardiac murmur, unspecified; Z91.041 Radiographic dye allergy status
CPT/HCPCS: 0241U-QW; 36415; 71046-TC-FY; 80048; 80053; 83735; 84100; 84443; 84484; 85025; 85027; 85610; 85730; 93005; 93010; 93306-TC; 99283-25; G0378

== ENCOUNTER 2023-10-12 16:43 | Emergency (ER) | payer BC ==
[2023-10-12] MEDS: ACETAMINOPHEN 500 MG TABLET (FP) PO ONE (16:51)
[2023-10-12] MEDS ORDERED: ACETAMINOPHEN 500 MG TABLET (FP) ONE (16:51)
[2023-10-12 16:52] VITALS: BP 120/77; PULSE 83; RESP 20; TEMP 98; BMI 34.9
== END 2023-10-12 17:40 | disposition home or self-care (01) ==
LOC: JERFT 16:43 → JER 16:43 → JERFT 17:40
DX: R51.9 Headache, unspecified (principal); R22.0 Localized swelling, mass and lump, head; Y04.8XXA Assault by other bodily force, initial encounter; Y99.0 Civilian activity done for income or pay
CPT/HCPCS: 70486-TC; 99284-25

== ENCOUNTER 2024-03-06 09:10 | Emergency (ER) | payer BC ==
[2024-03-06 09:30] VITALS: BP 136/72; PULSE 72; RESP 19; TEMP 98.6; BMI 33.4
[2024-03-06] MEDS ORDERED: predniSONE 20 MG TABLET (UD) ONE (09:32)
[2024-03-06] MEDS: predniSONE 20 MG TABLET (UD) PO ONE (09:34)
== END 2024-03-06 09:49 | disposition home or self-care (01) ==
LOC: JER 09:10 → JERFT 09:10
DX: L24.7 Irritant contact dermatitis due to plants, except food (principal)
CPT/HCPCS: 99283-25

== ENCOUNTER 2024-06-24 10:11 | Day surgery (SDC) | payer BC ==
[2024-06-17 13:34] VITALS: BMI 34.9
[2024-06-24] MEDS ORDERED: ROPIVACAINE HCL/PF 100 MG/20 ML VIAL ONE (11:54)
[2024-06-24] MEDS ORDERED: MIDAZOLAM HCL 2 MG/2 ML SINGLE DOSE VIAL ONE (11:54)
[2024-06-24] MEDS ORDERED: VANCOMYCIN 1,000 MG VIAL (RESTRICTED TO ID ONLY) ONE ×2 (12:07→13:04)
[2024-06-24] MEDS ORDERED: LIDOCAINE HCL 1%, 10 MG/ML (20ML VIAL) ONE (12:44)
[2024-06-24] MEDS ORDERED: TRANEXAMIC ACID 1000 MG/10 ML VIAL ONE ×2 (13:01→14:28)
[2024-06-24] MEDS ORDERED: ceFAZolin SODIUM 1 GM VIAL ONE (13:01)
[2024-06-24] MEDS ORDERED: PROPOFOL 80 ML ONE ×2 (13:08→13:36)
[2024-06-24] MEDS ORDERED: BUPIVICAINE 0.25%/MORPH PF/KETOROLAC - 51ML DISP.SYRINGE IA ONE (14:05)
[2024-06-24] MEDS ORDERED: MAG HYDROX/AL HYDROX/SIMETH 30 ML UNIT-DOSE CUP PO PRN (15:34)
[2024-06-24] MEDS ORDERED: KETOROLAC TROMETHAMINE 30 MG/1 ML VIAL ONE (15:40)
[2024-06-24] MEDS ORDERED: LACTATED RINGERS SOLUTION 1,000 ML IV SCH (15:45)
[2024-06-24] MEDS ORDERED: PROMETHAZINE HCL 25 MG/1 ML VIAL IVPB PRN (15:46)
[2024-06-24] MEDS ORDERED: FENTANYL CITRATE/PF 50 MCG/ML VIAL ONE ×3 (15:46→16:12)
[2024-06-24] MEDS ORDERED: oxyCODONE HCL 5 MG TABLET PO PRN (15:46)
[2024-06-24] MEDS: ONDANSETRON 4 MG/2 ML VIAL IVPUSH PRN (15:50)
[2024-06-24] MEDS: KETOROLAC TROMETHAMINE 30 MG/1 ML VIAL IVPUSH SCH (15:52)
[2024-06-24] MEDS: LACTATED RINGERS SOLUTION 1,000 ML IV SCH (19:15)
[2024-06-24] MEDS: oxyCODONE HCL 5 MG TABLET PO PRN (19:34)
[2024-06-24] MEDS: CEFAZOLIN 2 GM/D5W 2 GM/50 ML ML IVPB SCH (20:18)
[2024-06-24] MEDS: TICAGRELOR 90 MG TABLET PO SCH (21:40)
[2024-06-24] MEDS: ROSUVASTATIN CA 20 MG TABLET PO SCH (21:41)
[2024-06-24] MEDS: SENNOSIDES/DOCUSATE COMBO (SENNA PLUS) TABLET (UD) PO SCH (21:41)
[2024-06-24] MEDS: GABAPENTIN 300 MG CAPSULE PO SCH (21:41)
[2024-06-25] MEDS: ACETAMINOPHEN 500 MG TABLET (FP) PO PRN (00:02)
[2024-06-25 08:28] LABS: HEMATOCRIT 45.9 % (35.4-49); HEMOGLOBIN 15.5 G/dL (11.7-16.9); MCHC 33.7 g/dl (32.0-35.9); PLATELET COUNT 194.5 10^3/uL (134-434); RBC 5.34 10^6/uL (4.00-5.60); RDW 14.1 % (11.9-15.9); WHITE BLOOD COUNT 10.2 10^3/uL (4.0-10.8)
[2024-06-25 09:04] LABS: POTASSIUM 4.5 mmol/L (3.5-5.1)
[2024-06-25] MEDS: metoPROLOL SUCCINATE 25 MG TAB.SR.24H (FP) PO SCH (09:09)
[2024-06-25] MEDS: ASPIRIN COATED 81 MG TABLET.EC PO SCH (09:10)
[2024-06-25] MEDS: MULTIVITAMINS (DAILY MVI) TABLET (FP) PO SCH (09:11)
[2024-06-25] MEDS: PANTOPRAZOLE 40 MG TABLET PO SCH (09:11)
[2024-06-26 08:18] LABS: HEMATOCRIT 40.3 % (35.4-49); HEMOGLOBIN 13.8 G/dL (11.7-16.9); MCH 29.6 pg (25.7-33.7); MCHC 34.3 g/dl (32.0-35.9); MEAN CELL VOLUME 86.4 fl (80-96); MEAN PLT VOLUME 8.1 fl (7.5-11.1); PLATELET COUNT 218.2 10^3/uL (134-434); RBC 4.67 10^6/uL (4.00-5.60); RDW 14.2 % (11.9-15.9)
[2024-06-26] MEDS: ACETAMINOPHEN 500 MG TABLET (FP) PO SCH (10:29)
[2024-06-26 22:26] VITALS: RESP 18
[2024-06-27 10:08] VITALS: PULSE 82; TEMP 98.1
[2024-06-27 14:30] VITALS: BP 120/79
== END 2024-06-27 16:15 | disposition home or self-care (01) ==
LOC: FASUSAT 10:11 → SUATTDRO 10:11 → FM/S 16:59 → FASUSAT 06-27 16:15
PROC: 8E0Y0CZ Robotic Assisted Procedure of Lower Extremity, Open Approach (ICD-10-PCS; 2024-06-24)
PROC: 0SRD0J9 Replacement of Left Knee Joint with Synthetic Substitute, Cemented, Open Approach (ICD-10-PCS; principal; 2024-06-24 13:23)
DX: M17.12 Unilateral primary osteoarthritis, left knee (principal)
CPT/HCPCS: 20985; 27447; C1776; S2900; 36415; 73560-TC-LT-FY; 80048; 85027; 88305-TC; 88311-TC; 93971-TC; 94760; 97010-GP; 97116-GP; 97162-GP

== ENCOUNTER 2024-08-14 18:07 | Emergency (ER) | payer BC, OTHER ==
[2024-08-14 18:34] VITALS: BP 157/89; PULSE 79; RESP 20; TEMP 97.6; BMI 33.4
[2024-08-14 19:04] LABS: BASO % 0.7 % (0-2.0); EOS % 3.2 % (0-4.5); HEMATOCRIT 46.8 % (35.4-49); HEMOGLOBIN 15.6 GM/dL (11.7-16.9); LYMPH % 26.5 % (8-40); MCH 28.1 pg (25.7-33.7); MCHC 33.3 g/dl (32.0-35.9); MEAN CELL VOLUME 84.6 fl (80-96); MONO % 9.7 % (3.8-10.2); NEUT % 59.9 % (42.8-82.8); RBC 5.54 M/mm3 (4.00-5.60); WHITE BLOOD COUNT 10.2 K/mm3 (4.0-10.0)
[2024-08-14 19:15] LABS: POTASSIUM 4.3 mmol/L (3.5-5.1)
[2024-08-14 19:21] LABS: ALBUMIN 3.2 g/dl (3.4-5.0); BLOOD UREA NITROGEN 15.5 mg/dL (7-18); CALCIUM 8.6 mg/dL (8.5-10.1)
[2024-08-14 19:25] LABS: BILIRUBIN,TOTAL 0.3 mg/dL (0.2-1); CREATININE 0.9 mg/dL (0.55-1.3)
[2024-08-14 20:09] LABS: HIV INTERPRETATION NEGATIVE (NEGATIVE)
[2024-08-14 20:28] LABS: MEAN PLT VOLUME 7.4 fl (7.5-11.1); PLATELET COUNT 269 10^3/uL (134-434)
== END 2024-08-14 18:58 | disposition home or self-care (01) ==
LOC: JERFT 18:07
DX: Z77.21 Contact with and (suspected) exposure to potentially hazardous body fluids (principal)
CPT/HCPCS: 36415; 80053; 85025; 86704; 86803; 87340; 87389; 87517; 99283-25